=== PATIENT | male | born 1970 | race Caucasian/White ===

== ENCOUNTER 2016-06-30 10:32 | Emergency (ER) | payer BC ==
[2016-06-30 10:43] VITALS: BP 171/113
[2016-06-30] MEDS ORDERED: PHENAZOPYRIDINE HCL 100 MG TABLET PO ONE (10:58)
--- NOTE | 2016-06-30 10:58 | ERNOTE ---
ER Male HPI Date of Service: 06/30/16 Stated Complaint: BLEEDING Time Seen by Provider: 06/30/16 10:45 Source: patient, family Exam Limitations: no limitations Immunizations: IMMUNIZATION HX Immunizations Up to Date Yes History of Influenza Vaccine No Hx Pneumococcal Vaccination No Allergies/Adverse Reactions: Allergies meperidine HCl [From Demerol] Adverse Reaction (Verified 06/30/16 10:43) Home Medications: HOME MEDICATIONS Gabapentin 300 mg PO TID 06/07/16 [Last Taken Unknown] Losartan Potassium 100 mg PO DAILY 06/07/16 [Last Taken Unknown] Metoprolol Succinate 100 mg PO DAILY 06/07/16 [Last Taken Unknown] Amox Tr/Potassium Clavulanate 06/30/16 [Last Taken Unknown] Phenazopyridine HCl [Pyridium] 200 mg PO QID #12 tablet 06/30/16 [Last Taken Unknown] - History of Present Illness Narrative: Was using a urethral sex toy last night. Began bleeding while using it about 2300. Bleeding continues. No pain really. Slight dysuria. Timing: Present: constant Quality: Present: mild Onset Location: Present: urethral Radiation: Present: none Activities at Onset: Present: sexual activity Prior Abdominal Problems: Present: none Associated Symptoms: Present: denies symptoms Prior Treatment: Absent: currently on antibiotics Review of Systems - Review of Systems Constitutional: Present: no symptoms reported EYE: Present: no symptoms reported ENT: Present: no symptoms reported Respiratory: Present: no symptoms reported Cardiology: Present: no symptoms reported Gastrointestinal/Abdominal: Present: no symptoms reported Genitourinary: Present: See HPI Musculoskeletal: Present: no symptoms reported Skin: Present: no symptoms reported Neurological: Present: no symptoms reported Endocrine: Present: no symptoms reported Hematologic/Lymphatic: Present: no symptoms reported Psych: Present: no symptoms reported All Other Systems: All systems neg except as marked - Patient's Past Medical History Patient History - Medical: No pertinent hx Patient History - Cardiac/Respiratory: Hypertension, Hyperlipidemia Patient History - Cancer: No Hx of Cancer Patient History - Surgical Procedures: No surgical history, Back Surgery, Ear Tubes, Other Patient History - Other: None - Social History Living Situations: home Psych History: No pertinent hx - Immunizations Immunizations Up to Date: Yes Hx Pneumococcal Vaccination: No History of Influenza Vaccine: No Physical Exam - Physical Exam General Appearance: Present: wd/wn, alert, no apparent distress Eye Exam: Normal inspection: bilateral, PERRL: bilateral, EOMI: bilateral Ears, Nose, Throat: Present: normal ENT inspection Neck: Present: normal inspection Respiratory: Present: no respiratory distress Cardiovascular/Chest: Present: regular rate, rhythm Gastrointestinal/Abdominal: Present: normal bowel sounds, nontender, nondistended, soft, no organomegaly Male Genitals Exam: Present: normal genitalia, bleeding - ricki gross blood slowly dripping from urethra Back Exam: Present: normal inspection Extremity Exam: Present: normal inspection Neurological Exam: Present: alert, oriented, normal mood/affect Skin Exam: Present: normal color, warm/dry ED Progress - Results and Orders Patient's Lab Results:: I have reviewed the patient's lab results. - Vital Signs Patient's Vital Signs:: I have reviewed the patient's vital signs. Vital Signs: Vital Signs 06/30/16 10:37 Temperature 36.4 C L Pulse Rate 73 Respiratory 16 Rate Blood Pressure 171/113 O2 Sat by Pulse 98 Oximetry - Progress/Reassessment Chief Complaint: Genitourinary Problem Progress Note-Subjective: 06/30/16 11:[address] Mojica, urology, by phone. Consider 18 bello over weekend. Consider urology referral in 2 days. Procedures Date and Time: 20 fr bello placed with Lidocaine jelly. Complications: Pt andrew procedure well Departure Clinical Impression: Hematuria - Departure Disposition: Home self-care Condition: Good Instructions: Dysuria Additional Instructions: Followup with Dr. Akbar Mojica at his [place] office in 2 days, that is , at 7:30 AM Saturday. Referrals: Lexis Norman MD [Primary Care Provider] - Prescriptions: Phenazopyridine HCl [Pyridium] 200 mg PO QID #12 tablet
[2016-06-30] MEDS ORDERED: PHENAZOPYRIDINE HCL 100 MG TABLET ONE (11:02)
--- OUTSIDE RECORDS SUMMARY | 2016-06-30 11:12 | XMS REPORT | Continuity of Care Document ---
:1970 Author Organization [facility] ([facility]) [place] [address] Phone [phone] Care Team Providers Name Role Phone eKvin Peralta Primary Care Provider [phone] Source Comments This disclosure is being made pursuant to the Care Everywhere program, applicable federal and state laws, and may not contain all informaitonavailable regarding this patient.[facility] ([facility]) Active Allergies and Adverse Reactions Allergen Noted Date Severity Reactions Comments Dust 06/09/2009 OTHER Patient states dust causes sinus problems Egg 06/09/2009 OTHER sinus Meperidine 05/25/2009 Pruritus Current Medications Prescription Sig. Disp. Refills Start Date End Date Status CITALOPRAM HYDROBROMIDE take 10 mg by Active (CITALOPRAM PO) mouth. ACETAMINOPHEN (TYLENOL PO) Take 500 mg by 08/01/2009 Active mouth as needed. Indications: Pain Active Problems Not on file Social History Tobacco Use Types Packs/Day Years Used Date Never Assessed Last Filed Vital Signs Vital Sign Reading Time Taken Blood Pressure 147/85 08/01/2009 3:15 PM CDT Pulse 74 08/01/2009 3:15 PM CDT Temperature 36.9 C (98.4 F) 08/01/2009 3:15 PM CDT Respiratory Rate 16 07/21/2009 1:13 PM CDT Height 1.73 m (5' 8.11") 06/09/2009 1:27 PM [employer] Weight 75.1 kg (165 lb 9.1 oz) 07/21/2009 8:51 AM CDT Body Mass Index 25.09 07/21/2009 8:51 AM CDT Oxygen Saturation 95% 07/21/2009 1:13 PM CDT Plan of Care Health Maintenance Due Date Last Done Comments Hepatitis B Vaccine (1 of 3 - Primary Series) 1970 Tdap Vaccine 12/05/1979 Lipid Disorder Screening 1986 MMR Vaccine 1986 Td Vaccine 1986 Influenza Vaccine: Seasonal (#1) 10/31/2015 Results from Last 3 Months Not on file
[2016-06-30 11:16] LABS: Hematocrit 41.6 % (42.0-52.0); Hemoglobin 14.6 gm/dL (13.5-18.0); Mean Cell Volume 86.1 fl (78-100); Mean Corpuscular Hemoglobin 30.2 pg (27-31); Mean Corpuscular Hgb Conc 35.1 g/dl (32-36); Mean Platelet Volume 11.3 fl (6.0-9.5); Neutrophil # 3.1 K/mm3 (1.3-6.0); Neutrophil % 59.8 % (42-75.0); Platelet Count 189 K/mm3 (150-450); Red Blood Count 4.83 M/mm3 (4.7-6.0); Red Cell Distribution Width 13.7 % (11.5-14.0); White Blood Count 5.2 K/mm3 (4.0-10.5)
[2016-06-30 11:28] LABS: Albumin * 4.1 gm/dl (3.4-5.0); Anion Gap 14.7 mmol/L (6.8-13.8); BUN/Creatinine Ratio 12.5 (9.0-21.6); Bilirubin, Total 0.4 mg/dL (0.0-1.1); Ca. Corrected For Albumin 8.2 mg/dL (8.4-10.2); Calcium * 8.6 mg/dL (7.9-10.9); Carbon Dioxide 27.8 mmol/L (24-32.6); Potassium 3.5 mmol/L (3.4-4.6)
[2016-06-30] MEDS ORDERED: LIDOCAINE HCL 10 APPL CARTRIDGE ONE (11:58)
[2016-06-30 12:16] LABS: Urine Appearance Bloody; Urine Bilirubin Negative (NEGATIVE); Urine Blood 250 /ul (NEGATIVE); Urine Color Yellow; Urine Ketone Negative (NEGATIVE); Urine Nitrite Negative (NEGATIVE); Urine Protein >=300 mg/dL (NEGATIVE); Urine Specific Gravity 1.025 SP.GR. (1.005-1.030); Urine Urobilinogen Normal (NORMAL)
[2016-06-30 12:17] LABS: Urine Bacteria None Seen; Urine RBC >50 /hpf (0-5); Urine WBC 0-5 /hpf (0-5)
== END 2016-06-30 13:18 | disposition home or self-care (01) ==
LOC: ER 10:32
PROC: 0T9B70Z Drainage of Bladder with Drainage Device, Via Natural or Artificial Opening (ICD-10-PCS; principal; 2016-06-30)
DX: R31.9 Hematuria, unspecified (principal)

== ENCOUNTER 2016-07-03 14:40 | Emergency (ER) | payer BC ==
[2016-07-03 14:52] VITALS: BP 153/104
[2016-07-03] MEDS ORDERED: KETOROLAC TROMETHAMINE 30 MG/ML VIAL IV ONE (15:02)
--- OUTSIDE RECORDS SUMMARY | 2016-07-03 15:06 | XMS REPORT | Continuity of Care Document ---
:1970 Author Organization [facility] ([facility]) [place] [address] Phone [phone] Care Team Providers Name Role Phone Kevin Peralta Primary Care Provider [phone] Source Comments This disclosure is being made pursuant to the Care Everywhere program, applicable federal and state laws, and may not contain all informaitonavailable regarding this patient.[facility] ([facility]) Active Allergies and Adverse Reactions Allergen [...] 1.73 m (5' 8.11") 06/09/2009 1:27 PM [employer] Weight 75.1 kg (165 lb 9.1 oz) [...]
[2016-07-03] MEDS ORDERED: KETOROLAC TROMETHAMINE 30 MG/ML VIAL ONE (15:08)
--- NOTE | 2016-07-03 15:08 | ERNOTE ---
ER Male HPI Stated Complaint: SWELLING FROM CATHETER Time Seen by Provider: 07/03/16 15:01 Source: patient Immunizations: IMMUNIZATION HX Immunizations Up to Date Yes History of Influenza Vaccine No Hx Pneumococcal Vaccination No Allergies/Adverse Reactions: Allergies meperidine HCl [From Demerol] Adverse Reaction (Verified 07/03/16 14:52) Home Medications: HOME MEDICATIONS Gabapentin 300 mg PO TID 06/07/16 [Last Taken Unknown] Losartan Potassium 100 mg PO DAILY 06/07/16 [Last Taken Unknown] Metoprolol Succinate 100 mg PO DAILY 06/07/16 [Last Taken Unknown] Amox Tr/Potassium Clavulanate 06/30/16 [Last Taken Unknown] Phenazopyridine HCl [Pyridium] 200 mg PO QID #12 tablet 06/30/16 [Last Taken Unknown] Cephalexin Monohydrate [Keflex] 500 mg PO QID #40 cap 07/03/16 [Last Taken Unknown] Cyclobenzaprine HCl [Flexeril] 10 mg PO TID PRN 07/03/16 [Last Taken Unknown] HYDROcodone/ACETAMINOPHEN [[place] 5-325] 1 - 2 tab PO Q6H PRN #12 tab 07/03/16 [ Last Taken Unknown] Ibuprofen [Motrin] 800 mg PO TID PRN #30 tablet 07/03/16 [Last Taken Unknown] - History of Present Illness Narrative: here for swelling of glans and area ventral to the glans of penis. Pt does have an appointment with urologist in 2 days for FB in penis Review of Systems - Review of Systems Constitutional: Present: no symptoms reported Respiratory: Present: no symptoms reported, orthopnea - Patient's Past Medical History Patient History - Medical: No pertinent hx Patient History - Cardiac/Respiratory: Hypertension, Hyperlipidemia Patient History - Cancer: No Hx of Cancer Patient History - Surgical Procedures: No surgical history, Back Surgery, Ear Tubes, Other Patient History - Other: None - Social History Living Situations: home Psych History: No pertinent hx - Immunizations Immunizations Up to Date: Yes Hx Pneumococcal Vaccination: No History of Influenza Vaccine: No Physical Exam - Physical Exam General Appearance: Present: wd/wn, alert, no apparent distress Male Genitals Exam: Present: other - penis is circ'd, there is a bello in place. there is swelling and redness of the glans with edema just underneath glans. minimal pus noted from meatus. Bello is draining well ED Progress - Vital Signs Patient's Vital Signs:: I have reviewed the patient's vital signs. Vital Signs: Vital Signs 07/03/16 14:45 Temperature 36.5 C Pulse Rate 70 Respiratory 16 Rate Blood Pressure 153/104 O2 Sat by Pulse 95 Oximetry - Progress/Reassessment Chief Complaint: Genitourinary Problem Departure Clinical Impression: Cellulitis of penis - Departure Disposition: Home self-care Condition: Fair Instructions: Cellulitis, Pediatric, Cellulitis, Adult, [id number] Referrals: Lexis Norman MD [Primary Care Provider] - Prescriptions: Cephalexin Monohydrate [Keflex] 500 mg PO QID #40 cap HYDROcodone/ACETAMINOPHEN [[place] 5-325] 1 - 2 tab PO Q6H PRN #12 tab PRN Reason: Pain Ibuprofen [Motrin] 800 mg PO TID PRN #30 tablet PRN Reason: Pain
== END 2016-07-03 15:50 | disposition home or self-care (01) ==
LOC: ER 14:40
DX: N48.22 Cellulitis of corpus cavernosum and penis (principal)

== ENCOUNTER 2016-08-29 13:34 | Day surgery (SDC) | payer BC ==
[~2016-08-29 13:34] MED LIST: KETOROLAC TROMETHAMINE 15 MG/ML VIAL IV PRN; METOCLOPRAMIDE HCL 5 MG/ML VIAL IV PRN; MORPHINE SULFATE 2 MG/ML DISP.SYRIN IV PRN; MORPHINE SULFATE 4 MG/ML SYRG IV PRN; NORMAL SALINE 1,000 ML IV PRN; ONDANSETRON HCL/PF 2 MG/ML VIAL IV PRN; oxyCODONE HCL/ACETAMINOPHEN 1 TAB TABLET PO PRN
--- OUTSIDE RECORDS SUMMARY | 2016-08-29 13:37 | XMS REPORT | Continuity of Care Document ---
:1970 Author Organization [facility] ([facility]) [place] [address] Phone [phone] Care Team Providers Name Role Phone Kevin Peralta Primary Care Provider [phone] Source Comments This disclosure is being made pursuant to the Care Everywhere program, applicable federal and state laws, and may not contain all informaitonavailable regarding this patient.[facility] ([facility]) Active Allergies and Adverse Reactions Allergen Noted [...] 1.73 m (5' 8.11") 06/09/2009 1:27 PM [employer] Weight 75.1 kg (165 lb 9.1 oz) [...]
[2016-08-29] MEDS ORDERED: NORMAL SALINE 1,000 ML IV ONE (14:07)
--- NOTE | 2016-08-29 15:31 | OR ---
Operative Report - Dictated Report Narrative: Location: Main OR Anesthesia: General Surgeon: Dr. Webber Preoperative diagnosis: Distal urethral stricture versus meatal stenosis Postoperative diagnosis: Dense but short distal urethral stricture Procedure: #1 retrograde urethrogram #2 cystoscopy with guidewire placement, urethral balloon dilation followed by sound dilation to 26 Beninese and placement of 20 Beninese Councill catheter Indications: 45-year-old male with history of foreign body urethral injury. Patient had indwelling Mcmahan followed by imaging and cystoscopy confirming healing of the urethral injury. Catheter was removed but over time stream narrowed such that it felt like he was blocking up at the tip. Stricture suspected. Meatus was slightly narrowed on exam so we discussed possibility of meatotomy versus stricture dilation depending on intraoperative findings. Description: Consent obtained. Patient brought to the operating room where general endotracheal anesthesia was induced. Placed in the dorsal lithotomy position. Prepped and draped. Timeout taken. On examination there is a palpable density within a centimeter or 2 of the meatus likely representing stricture. I placed it to me a syringe against meatus and injected and there was contrast bypassing this area but very fine jet. With phallus on stretch I introduced a CallMD wire which popped through into what I suspected was the normal urethra. 5 Beninese catheter advanced wire removed and contrast injected. There is good imaging of a very normal urethra with good healing in terms of where the laceration had been however there is a transition point distally likely representing what appears to be a distal urethral stricture. I manipulated the wire to the bladder under fluoroscopic guidance. Switch to a urethral balloon dilator which was advanced over the wire into the urethra and with manual pressure and contrast the balloon was inflated. There remained a slight pinch point at the area of the stricture however it did dilate some with the balloon. Switch back to flexible cystoscope introduced into the urethra navigated all the way to the bladder. The entire urethra with the exception of the very distal last 1 or 2 cm was completely normal. Appearance of tissue changed at that location with more dense scar like urethral mucosa. I do not think the meatus is the issue based on this finding. Distal urethral caliber after ballooning was 16 Beninese however scope was snug. I elected with the wire in place to perform sound dilation using metal sounds and did so up to 26 Beninese. There was not a lot of resistance in the dilation process but there was a little bit of bleeding. Over the safety wire 26 Beninese Councill catheter was introduced and balloon was inflated. Specimen: None EBL: 5 ml Condition: tolerated procedure Important findings: Short but tight/dense distal urethral stricture likely related to prior trauma post successful retrograde/balloon dilation followed by Connor sound dilation to 26 Beninese and 20 Beninese Chappell catheter placement. Follow-up: We'll shoot for 5 days with catheter which could be removed Saturday in [place] in the [place]. If recurs may need to start intermittent catheterization on his own distally on a weekly or regimented basis or proceed with more formal surgical correction but would refer to [facility] for that.
[2016-08-29 16:51] VITALS: BP 163/80
== END 2016-08-29 13:35 | disposition home or self-care (01) ==
LOC: AMB 13:34
PROVIDERS: ATTEND Urology
PROC: 0T7D8ZZ Dilation of Urethra, Via Natural or Artificial Opening Endoscopic (ICD-10-PCS; principal; 2016-08-29 15:55)
DX: N35.9 Urethral stricture, unspecified (principal); F17.210 Nicotine dependence, cigarettes, uncomplicated; Z68.29 Body mass index [BMI] 29.0-29.9, adult